=== PATIENT | male | born 1970 | race Caucasian/White ===

== ENCOUNTER 2019-01-11 06:56 | Day surgery (SDC) | payer MEDICARE, MEDICAID ==
[2019-01-11] VITALS (20 sets, daily range): BP systolic 106–205; BP diastolic 48–141
[~2019-01-11] VITALS: Ht 177.8 cm; Wt 86.5 kg
[2019-01-11] MEDS ORDERED: normal saline 1000ml 1,000 ML IV PRN (07:15)
[2019-01-11 07:23] LABS: BASOPHILS # (AUTO) 0.1 X10'3 (0-0.2); BASOPHILS % (AUTO) 1.2 % (0-1); EOSINOPHILS # (AUTO) 0.2 X10'3 (0-0.9); EOSINOPHILS % (AUTO) 1.9 % (0-6); HEMOGLOBIN 16.3 g/dl (14.0-17.9); LYMPHOCYTES # (AUTO) 2.3 X10'3 (1.1-4.8); LYMPHOCYTES % (AUTO) 27.6 % (21-51); MEAN CORPUSCULAR HEMOGLOBIN 37.2 PG (27.0-31.0); MEAN CORPUSCULAR HGB CONC 34.7 g/dL (33.0-36.5); MEAN CORPUSCULAR VOLUME 107.1 FL (78-98); MEAN PLATELET VOLUME 7.4 FL (7.4-10.4); MONOCYTES # (AUTO) 0.9 X10'3 (0-0.9); MONOCYTES % (AUTO) 10.3 % (2-12); PLATELET COUNT 371 X10'3 (140-440); RED BLOOD COUNT 4.39 X10'6 (4.70-6.10); RED CELL DISTRIBUTION WIDTH 15.7 % (11.5-14.5); WHITE BLOOD COUNT 8.4 X10'3 (4.5-11.0)
[2019-01-11 07:33] LABS: ALBUMIN 3.2 G/DL (3.4-5.0); ANION GAP 8 (8-16); BLOOD UREA NITROGEN 6 MG/DL (7-18); BUN/CREATININE RATIO 7.8 (5.4-32.0); CALCIUM 8.8 MG/DL (8.5-10.1); CHLORIDE 104 MMOL/L (99-107); CREATININE 0.77 MG/DL (0.60-1.10); GLUCOSE 102 MG/DL (70-104); SODIUM 143 MMOL/L (135-145); TOTAL CARBON DIOXIDE 31.3 MMOL/L (24-32); eGFR > 90 ML/MIN
[2019-01-11 07:40] LABS: POTASSIUM 2.9 MMOL/L (3.5-5.1)
[2019-01-11] MEDS ORDERED: PHEN100C12 PO (07:48)
[2019-01-11] MEDS ORDERED: LOSA100T57 PO (07:48)
[2019-01-11] MEDS ORDERED: LACT1CAP65 PO (07:48)
[2019-01-11] MEDS ORDERED: BENZ200C53 PO (07:48)
[2019-01-11] MEDS ORDERED: [UNRECOGNIZED DRUG - OTHER] PO (07:48)
[2019-01-11] MEDS ORDERED: IBUP-2697 PO (07:48)
[2019-01-11] MEDS ORDERED: potassium Cl 20 mEq SR tablet PO PRN ×2 (07:55)
[2019-01-11] MEDS ORDERED: LIDOcaine 1%/PF 5ML 10 MG/ML VIAL SQ ONE (08:35)
[2019-01-11] MEDS ORDERED: midazolam 2 mg/2 ml injection ONE (08:35)
[2019-01-11] MEDS ORDERED: midazolam 2 mg/2 ml injection IV PRN (08:35)
[2019-01-11] MEDS ORDERED: fentaNYL/PF 50MCG/1 ML 2ML syringe IV PRN (08:35)
[2019-01-11] MEDS ORDERED: fentaNYL/PF 50MCG/1 ML 2ML syringe ONE (08:36)
[2019-01-11] MEDS ORDERED: hydrALAZINE 20mg/ml inj. IV ONE ×2 (08:51→09:15)
[2019-01-11] MEDS ORDERED: HYDROcodone/acetaminophen 5mg/325mg tablet PO PRN ×2 (09:35)
[2019-01-11] MEDS ORDERED: sodium chloride 0.45% 1,000 ML IV SCH (09:35)
[2019-01-11] MEDS ORDERED: morphine 4 MG/ML inj SYRINge IV PRN (09:35)
[2019-01-11] MEDS ORDERED: ibuprofen tablet 400 MG TABLET PO ONE (10:30)
== END 2019-01-11 13:22 | disposition home or self-care (01) ==
LOC: SSTAY O 06:56
PROVIDERS: ATTEND Radiology Vascular & Interventional Radiology
DX: C34.12 Malignant neoplasm of upper lobe, left bronchus or lung (principal); C79.72 Secondary malignant neoplasm of left adrenal gland; I10 Essential (primary) hypertension; J45.909 Unspecified asthma, uncomplicated; F17.290 Nicotine dependence, other tobacco product, uncomplicated; Z98.890 Other specified postprocedural states; Z79.899 Other long term (current) drug therapy
CPT/HCPCS: 32405; 36415; 49180; 71045; 77012; 80048; 85025; 85610; 99152; 99153; J0360; J2250; J3010; J7030; 88305; 88341; 88342

== ENCOUNTER 2019-02-11 06:24 | Day surgery (SDC) | payer MEDICARE, MEDICAID ==
[~2019-02-11] VITALS: Ht 172.7 cm; Wt 85.3 kg
[2019-02-11] VITALS (8 sets, daily range): BP systolic 152–174; BP diastolic 98–122
[~2019-02-11 06:24] MED LIST: BENZ200C53 PO; IBUP-2697 PO; LACT1CAP65 PO; LOSA100T57 PO; PHEN100C12 PO; [UNRECOGNIZED DRUG - OTHER] PO
[2019-02-11] MEDS ORDERED: normal saline 1000ml 1,000 ML IV SCH (06:50)
[2019-02-11 07:36] LABS: BASOPHILS # (AUTO) 0.1 X10'3 (0-0.2); BASOPHILS % (AUTO) 0.8 % (0-1); EOSINOPHILS # (AUTO) 0.2 X10'3 (0-0.9); EOSINOPHILS % (AUTO) 2.3 % (0-6); HEMATOCRIT 45.1 % (42.0-52.0); HEMOGLOBIN 15.8 g/dl (14.0-17.9); LYMPHOCYTES # (AUTO) 1.9 X10'3 (1.1-4.8); LYMPHOCYTES % (AUTO) 21.3 % (21-51); MEAN CORPUSCULAR HEMOGLOBIN 38.3 PG (27.0-31.0); MEAN CORPUSCULAR VOLUME 109.6 FL (78-98); MEAN PLATELET VOLUME 7.3 FL (7.4-10.4); MONOCYTES # (AUTO) 0.7 X10'3 (0-0.9); MONOCYTES % (AUTO) 7.5 % (2-12); NEUTROPHILS # (AUTO) 6.1 X10'3 (1.8-7.7); NEUTROPHILS % (AUTO) 68.1 % (42-75); PLATELET COUNT 416 X10'3 (140-440); RED BLOOD COUNT 4.12 X10'6 (4.70-6.10); RED CELL DISTRIBUTION WIDTH 14.7 % (11.5-14.5)
[2019-02-11 07:39] LABS: ALBUMIN 3.2 G/DL (3.4-5.0); ANION GAP 8 (8-16); CALCIUM 8.8 MG/DL (8.5-10.1); CHLORIDE 103 MMOL/L (99-107); CREATININE 0.76 MG/DL (0.60-1.10); GLUCOSE 95 MG/DL (70-104); SODIUM 141 MMOL/L (135-145); TOTAL CARBON DIOXIDE 30.3 MMOL/L (24-32); eGFR > 90 ML/MIN
[2019-02-11 07:55] LABS: POTASSIUM 2.8 MMOL/L (3.5-5.1)
[2019-02-11 07:59] LABS: BLOOD UREA NITROGEN 3 MG/DL (7-18); BUN/CREATININE RATIO 3.9 (5.4-32.0)
[2019-02-11] MEDS ORDERED: METO50TA7 PO (08:06)
[2019-02-11] MEDS ORDERED: GLUTAMINE PO (08:06)
[2019-02-11] MEDS ORDERED: NyQuil PO (08:06)
[2019-02-11] MEDS ORDERED: ALBU18HF2 INH (08:06)
[2019-02-11] MEDS ORDERED: HYDR-3964 PO (08:06)
[2019-02-11] MEDS ORDERED: fentaNYL/PF 50MCG/1 ML 2ML syringe IV PRN (08:50)
[2019-02-11] MEDS ORDERED: LIDOcaine 1%/PF 5ML 10 MG/ML VIAL SQ ONE (08:50)
[2019-02-11] MEDS ORDERED: midazolam 2 mg/2 ml injection IV PRN (08:50)
[2019-02-11] MEDS ORDERED: potassium Cl 20 mEq SR tablet PO PRN ×2 (08:55)
== END 2019-02-11 10:20 | disposition home or self-care (01) ==
LOC: SSTAY O 06:24
PROVIDERS: ATTEND Radiology Diagnostic Radiology
DX: C77.0 Secondary and unspecified malignant neoplasm of lymph nodes of head, face and neck (principal); C79.72 Secondary malignant neoplasm of left adrenal gland; C34.92 Malignant neoplasm of unspecified part of left bronchus or lung; R22.1 Localized swelling, mass and lump, neck; I10 Essential (primary) hypertension; J45.909 Unspecified asthma, uncomplicated; F17.210 Nicotine dependence, cigarettes, uncomplicated; Z01.812 Encounter for preprocedural laboratory examination
CPT/HCPCS: 36415; 38505; 76942; 80048; 85025; 85610; 88173; 88305; 88342; J7030